=== PATIENT | male | born 1990 | race Hispanic/Latino ===

== ENCOUNTER 2020-09-28 11:03 | Emergency (ER) | payer SELFPAY ==
[~2020-09-28] VITALS: Ht 175.3 cm; Wt 122.5 kg
[~2020-09-28 11:03] MED LIST: AUGMENTIN 875-1 EACH PO; ULTRAM50 MG PO
== END 2020-09-28 12:05 | disposition home or self-care (01) ==
LOC: EEVIPCON 11:03 → ER 11:06
DX: S01.81XA Laceration without foreign body of other part of head, initial encounter (principal); W22.09XA Striking against other stationary object, initial encounter; Y92.008 Other place in unspecified non-institutional (private) residence as the place of occurrence of the external cause
CPT/HCPCS: 99282